=== PATIENT | female | born 1970 | race Native Hawaiian/Other Pacific Islander ===

== ENCOUNTER 2016-08-17 12:39 | Outpatient (CLI) | payer OTHER ==
[~2016-08-17 12:39] MED LIST: ALBUTEROL0.083 % IN; ANORO ELLIPTA 61 AER IN; BUDE1AER5 INH; CHLORTHALID25 MG PO; CLARITIN10 M1 PO; LEVO0.1519 PO; NEXIUM40 M1 PO; TRIA37.541 PO
== END 2016-08-17 20:47 | disposition home or self-care (01) ==
LOC: RAD 12:39
DX: J90 Pleural effusion, not elsewhere classified (principal)

== ENCOUNTER 2016-10-10 09:54 | Outpatient (CLI) | payer OTHER | END 2016-10-10 11:30 | disposition home or self-care (01) | LOC: CT 09:54 | DX: J32.4 Chronic pansinusitis (principal); J31.0 Chronic rhinitis ==

== ENCOUNTER 2016-12-01 00:58 | Emergency (ER) | payer OTHER ==
[~2016-12-01] VITALS: Ht 165.1 cm; Wt 140.6 kg
[2016-12-01 02:07] LABS: PLATELET COUNT 205 K/uL (152-353)
[2016-12-01 04:16] VITALS: BP 135/66; TEMP 98.3
== END 2016-12-01 04:25 | disposition home or self-care (01) ==
LOC: ED 00:58
PROVIDERS: Emergency Medicine
DX: N39.0 Urinary tract infection, site not specified (principal); R11.2 Nausea with vomiting, unspecified; E03.8 Other specified hypothyroidism
CPT/HCPCS: 36415; 80053; 81000; 81025; 84443; 85027; 87077; 87086; 87088; 87186; 96361; 96374; 99284; J0744; J1885; J2175; J2405; J2550

== ENCOUNTER 2016-12-06 13:13 | Outpatient (CLI) | payer OTHER | END 2016-12-06 14:15 | disposition home or self-care (01) | LOC: RAD 13:13 | DX: M54.5 Low back pain (principal) ==

== ENCOUNTER 2016-12-14 15:12 | Outpatient (CLI) | payer OTHER | END 2016-12-14 19:36 | disposition home or self-care (01) | LOC: RESP 15:12 | DX: G56.03 Carpal tunnel syndrome, bilateral upper limbs (principal); G56.22 Lesion of ulnar nerve, left upper limb; G56.23 Lesion of ulnar nerve, bilateral upper limbs | CPT/HCPCS: 95911 ==

== ENCOUNTER 2017-01-26 13:54 | Emergency (ER) | payer OTHER ==
[~2017-01-26] VITALS: Ht 165.1 cm; Wt 145.2 kg
[2017-01-26 14:22] VITALS: TEMP 99
[2017-01-26 15:22] VITALS: BP 132/84
== END 2017-01-26 15:22 | disposition home or self-care (01) ==
LOC: ED 13:54
PROC: 0HQDXZZ Repair Right Lower Arm Skin, External Approach (ICD-10-PCS; principal; 2017-01-26)
DX: S51.811A Laceration without foreign body of right forearm, initial encounter (principal); W22.8XXA Striking against or struck by other objects, initial encounter; Y92.89 Other specified places as the place of occurrence of the external cause
CPT/HCPCS: 99283

== ENCOUNTER 2017-02-12 08:03 | Outpatient (CLI) | payer OTHER | END 2017-02-12 09:30 | disposition home or self-care (01) | LOC: MRI 08:03 | DX: M54.17 Radiculopathy, lumbosacral region (principal) ==

== ENCOUNTER 2017-04-18 23:36 | Emergency (ER) | payer OTHER ==
[~2017-04-18] VITALS: Ht 165.1 cm; Wt 149.7 kg
[2017-04-19 00:35] LABS: PLATELET COUNT 177 K/uL (152-353)
[2017-04-19 00:48] LABS: POTASSIUM 4.1 mmol/L (3.6-5.2)
[2017-04-19 02:00] VITALS: BP 109/49; TEMP 99.1
== END 2017-04-19 01:59 | disposition home or self-care (01) ==
LOC: ED 23:36
DX: J02.0 Streptococcal pharyngitis (principal); J11.1 Influenza due to unidentified influenza virus with other respiratory manifestations
CPT/HCPCS: 36415; 80053; 85027; 87804; 87880; 99283

== ENCOUNTER 2017-05-11 12:16 | Observation (INO) | payer OTHER ==
[~2017-05-11] VITALS: Ht 166.4 cm; Wt 152.9 kg
[2017-05-11 16:12] LABS: PLATELET COUNT 234 K/uL (152-353)
[2017-05-11 16:32] LABS: POTASSIUM 3.8 mmol/L (3.6-5.2); SODIUM 136 mmol/L (136-145)
[2017-05-11 16:55] LABS: PARTIAL THROMBOPLASTIN TIME 28.4 SECONDS (24.5-33.6)
[2017-05-11 17:11] VITALS: BP 129/84; TEMP 98.9; Ht 166.4 cm; Wt 152.9 kg
[2017-05-11] MEDS ORDERED: VENLAFAXINE75 M2 PO (18:01)
[2017-05-11] MEDS ORDERED: VITAMIN D5000 UNIT OR (18:01)
[2017-05-11] MEDS ORDERED: ONDA4TAB3 PO (18:02)
[2017-05-11] MEDS ORDERED: RANITIDINE 150150 MG PO ×2 (18:03→18:04)
[2017-05-11] MEDS ORDERED: CETI10TA PO (18:05)
[2017-05-11] MEDS ORDERED: XYZAL5 MG OR (18:06)
[2017-05-11] MEDS ORDERED: ZEBUTAL 50-325-1 CAP PO (18:06)
[2017-05-11] MEDS ORDERED: TRAM50TA PO (18:07)
[2017-05-11] MEDS ORDERED: CYCL10TA35 PO (18:08)
[2017-05-11 20:00] VITALS: BP 132/52; TEMP 99.1
[2017-05-11 23:38] VITALS: BP 110/55; TEMP 98.4
[2017-05-12 04:00] VITALS: BP 107/54; TEMP 97.6
--- NOTE | 2017-05-12 07:49 | NUR ---
ATTEMPTTED TO CALL DR. STALEY TO NOTIFY HR WAS IN 40'S. DR. STALEY ASWERED WILL CALL BACK. NITRO PATCH
[2017-05-12 08:00] VITALS: BP 123/63; TEMP 98
--- NOTE | 2017-05-12 10:17 | NUR ---
DR. STALEY CALLED. NOTIFIED HEARTRATE WAS LOW BUT RETURNED TO 60 AND 70 AFTER NITRO PATCH REMOVED.
[2017-05-12 12:00] VITALS: BP 121/50; TEMP 99.3
== END 2017-05-12 13:50 | disposition home or self-care (01) ==
LOC: MED/SURG 12:16
PROVIDERS: ADMIT Family Medicine
DX: R07.89 Other chest pain (principal); R00.1 Bradycardia, unspecified
CPT/HCPCS: 36415; 80053; 82550; 84484; 85027; 85610; 85730; 93005; 94640; 94664; 94760; 96365; 96366; 96372; 96375; 99220; G0378; G0379; J1650; J2405; J2930

== ENCOUNTER 2018-07-15 18:25 | Emergency (ER) | payer BC ==
[~2018-07-15] VITALS: Ht 165.1 cm; Wt 145.2 kg
[~2018-07-15 18:25] MED LIST changes: +CETI10TA PO; +CYCL10TA35 PO; +ONDA4TAB3 PO; +RANITIDINE 150150 MG PO; +TRAM50TA PO; +VENLAFAXINE75 M2 PO; +VITAMIN D5000 UNIT OR; +XYZAL5 MG OR; +ZEBUTAL 50-325-1 CAP PO
[2018-07-15 21:55] VITALS: BP 153/75; TEMP 98.1
== END 2018-07-15 22:00 | disposition home or self-care (01) ==
LOC: ED 18:25
DX: J45.909 Unspecified asthma, uncomplicated (principal); R06.02 Shortness of breath
CPT/HCPCS: 94664; 96372; 99282; J2920; J2930

== ENCOUNTER 2018-08-30 16:28 | Outpatient (CLI) | payer BC | END 2018-08-30 20:02 | disposition home or self-care (01) | LOC: RAD 16:28 | DX: R19.7 Diarrhea, unspecified (principal) | CPT/HCPCS: 83630; 87015; 87045; 87324; 87328; 87329; 87449; 87899 ==

== ENCOUNTER 2018-10-25 09:21 | Outpatient (CLI) | payer OTHER | END 2018-10-25 19:07 | disposition home or self-care (01) | LOC: MRI 09:21 | DX: M54.17 Radiculopathy, lumbosacral region (principal) ==

== ENCOUNTER 2018-11-08 14:08 | Outpatient (CLI) | payer OTHER | END 2018-11-08 23:41 | disposition home or self-care (01) | LOC: RAD 14:08 | DX: M25.561 Pain in right knee (principal) ==

== ENCOUNTER 2018-11-20 10:39 | Outpatient (CLI) | payer OTHER | END 2018-11-20 23:44 | disposition home or self-care (01) | LOC: RESP 10:39 | DX: R60.0 Localized edema (principal) | CPT/HCPCS: 93306 ==

== ENCOUNTER 2019-04-26 22:43 | Emergency (ER) | payer BC ==
[~2019-04-26] VITALS: Ht 165.1 cm; Wt 163.3 kg
[2019-04-27] LABS: PLATELET COUNT 219 K/uL (152-353)
[2019-04-27 00:27] LABS: POTASSIUM 3.5 mmol/L (3.6-5.2); SODIUM 141 mmol/L (136-145)
[2019-04-27 00:50] VITALS: BP 151/97; TEMP 97.7
== END 2019-04-27 00:50 | disposition home or self-care (01) ==
LOC: ED 22:43
PROVIDERS: Emergency Medicine
DX: J44.9 Chronic obstructive pulmonary disease, unspecified (principal); J18.9 Pneumonia, unspecified organism
CPT/HCPCS: 36415; 80053; 82550; 83880; 84484; 85027; 86140; 87502; 87651; 93005; 94664; 96374; 99284; J2930

== ENCOUNTER 2019-08-10 20:28 | Emergency (ER) | payer OTHER ==
[~2019-08-10] VITALS: Ht 165.1 cm; Wt 168.3 kg
[2019-08-10 22:00] VITALS: BP 128/72; TEMP 98.5
== END 2019-08-10 22:07 | disposition home or self-care (01) ==
LOC: ED 20:28
PROC: 0HQFXZZ Repair Right Hand Skin, External Approach (ICD-10-PCS; principal; 2019-08-10)
DX: S61.210A Laceration without foreign body of right index finger without damage to nail, initial encounter (principal); W25.XXXA Contact with sharp glass, initial encounter; Y92.89 Other specified places as the place of occurrence of the external cause
CPT/HCPCS: 99283

== ENCOUNTER 2019-11-20 10:45 | Observation (INO) | payer OTHER ==
[~2019-11-20] VITALS: Ht 165.1 cm; Wt 170.1 kg
[2019-11-20 15:56] LABS: PLATELET COUNT 213 K/uL (152-353)
[2019-11-20 16:00] VITALS: BP 157/69; TEMP 98.2
[2019-11-20 18:35] VITALS: BP 136/59; TEMP 98.4; Ht 165.1 cm; Wt 170.1 kg
[2019-11-20 20:00] VITALS: BP 145/85; TEMP 98.1
[2019-11-21 00:09] VITALS: BP 121/633; TEMP 98.3
[2019-11-21 04:02] VITALS: BP 131/54; TEMP 98.3
[2019-11-21 08:00] VITALS: BP 138/72; TEMP 98.8
[2019-11-21 12:00] VITALS: BP 135/59; TEMP 97.7
[2019-11-21 16:29] LABS: PLATELET COUNT 214 K/uL (152-353)
[2019-11-21 16:36] LABS: POTASSIUM 3.8 mmol/L (3.6-5.2)
[2019-11-21 20:00] VITALS: BP 114/58; TEMP 98.7
[2019-11-22] VITALS: BP 108/46; TEMP 98.1
[2019-11-22 04:00] VITALS: BP 134/71; TEMP 98.2
[2019-11-22 04:11] LABS: PLATELET COUNT 239 K/uL (152-353)
[2019-11-22 04:59] LABS: POTASSIUM 4.6 mmol/L (3.6-5.2)
[2019-11-22 08:00] VITALS: BP 152/68; TEMP 98.4
== END 2019-11-22 14:18 | disposition home or self-care (01) ==
LOC: MED/SURG 10:45
PROVIDERS: ADMIT Family Medicine
DX: U07.1 COVID-19 (principal); J45.901 Unspecified asthma with (acute) exacerbation; R06.00 Dyspnea, unspecified; E66.01 Morbid (severe) obesity due to excess calories; R09.02 Hypoxemia; E78.49 Other hyperlipidemia; I10 Essential (primary) hypertension; R51 Headache; E86.0 Dehydration
CPT/HCPCS: 36415; 80053; 82728; 83605; 83735; 84100; 85027; 85379; 87040; 93005; 94667; 94668; 94760; 99220; G0378; G0379; J0696; J1100; J1650

== ENCOUNTER 2020-07-26 12:53 | Outpatient (CLI) | payer BC ==
[2020-07-26 13:10] LABS: PLATELET COUNT 253 K/uL (152-353)
[2020-07-26 13:25] LABS: POTASSIUM 4.5 mmol/L (3.6-5.2)
== END 2020-07-26 21:38 | disposition home or self-care (01) ==
LOC: LABW 12:53
PROVIDERS: ATTEND Nurse Practitioner Family
DX: J44.1 Chronic obstructive pulmonary disease with (acute) exacerbation (principal); R60.0 Localized edema
CPT/HCPCS: 36415; 80053; 83880; 85027; 85652; 86038; 86140; 86430

== ENCOUNTER 2020-08-13 11:53 | Outpatient (CLI) | payer BC | END 2020-08-13 21:20 | disposition home or self-care (01) | LOC: RAD 11:53 | PROVIDERS: ATTEND Physician Assistant | DX: M25.561 Pain in right knee (principal); M25.562 Pain in left knee ==

== ENCOUNTER 2020-09-22 06:33 | Emergency (ER) | payer BC ==
[~2020-09-22] VITALS: Ht 165.1 cm; Wt 170.1 kg
[2020-09-22 06:38] VITALS: BP 149/65; TEMP 97
[2020-09-22 08:00] LABS: PLATELET COUNT 173 K/uL (152-353)
[2020-09-22 08:05] LABS: POTASSIUM 4.1 mmol/L (3.6-5.2)
== END 2020-09-22 08:58 | disposition still patient (30) ==
LOC: ED 06:33
PROVIDERS: Family Medicine
DX: J44.1 Chronic obstructive pulmonary disease with (acute) exacerbation (principal); F17.210 Nicotine dependence, cigarettes, uncomplicated
CPT/HCPCS: 80053; 85027; 94664; 96372; 99283; J1020; J1100

== ENCOUNTER 2020-11-21 11:47 | Emergency (ER) | payer BC ==
[~2020-11-21] VITALS: Ht 165.1 cm; Wt 171.5 kg
[2020-11-21 12:45] LABS: PLATELET COUNT 197 K/uL (152-353)
[2020-11-21 12:53] LABS: POTASSIUM 4.2 mmol/L (3.6-5.2)
[2020-11-21 13:00] VITALS: BP 119/51; TEMP 97.8
== END 2020-11-21 13:00 | disposition home or self-care (01) ==
LOC: ED 11:47
PROVIDERS: Hospitalist
DX: J06.9 Acute upper respiratory infection, unspecified (principal); J32.8 Other chronic sinusitis; F17.210 Nicotine dependence, cigarettes, uncomplicated; Z20.822 Contact with and (suspected) exposure to COVID-19
CPT/HCPCS: 80048; 85027; 87635; 87651; 96374; 96375; 99284; J1100; J2405; U0003

== ENCOUNTER 2020-11-23 15:54 | Outpatient (CLI) | payer BC ==
[~2020-11-23] VITALS: Ht 165.1 cm; Wt 170.1 kg
== END 2020-11-23 20:41 | disposition home or self-care (01) ==
LOC: INF 15:54
PROVIDERS: ATTEND Family Medicine
DX: E86.0 Dehydration (principal)
CPT/HCPCS: 96360; 96361

== ENCOUNTER 2021-01-06 15:09 | Outpatient (CLI) | payer BC | END 2021-01-06 19:14 | disposition home or self-care (01) | LOC: RAD 15:09 | PROVIDERS: ATTEND Nurse Practitioner Family | DX: R05 Cough (principal) ==

== ENCOUNTER 2021-01-06 16:48 | Emergency (ER) | payer BC ==
[~2021-01-06] VITALS: Ht 165.1 cm; Wt 171.9 kg
[2021-01-06 17:53] LABS: PLATELET COUNT 279 K/uL (152-353)
[2021-01-06 17:58] LABS: POTASSIUM 3.9 mmol/L (3.6-5.2); SODIUM 139 mmol/L (136-145)
[2021-01-06 20:50] VITALS: BP 141/74; TEMP 98
== END 2021-01-06 20:50 | disposition home or self-care (01) ==
LOC: ED 16:48
PROVIDERS: Hospitalist
DX: N39.0 Urinary tract infection, site not specified (principal); J44.1 Chronic obstructive pulmonary disease with (acute) exacerbation; K21.9 Gastro-esophageal reflux disease without esophagitis
CPT/HCPCS: 36415; 80053; 81000; 82550; 83880; 84484; 85027; 85610; 85730; 87077; 87086; 87088; 87186; 93005; 96365; 96366; 96375; 99284; J1956; J2405; J2930

== ENCOUNTER 2021-02-15 14:03 | Outpatient (CLI) | payer OTHER | END 2021-02-15 21:57 | disposition home or self-care (01) | LOC: RAD 14:03 | PROVIDERS: ATTEND Nurse Practitioner Primary Care | DX: Z20.822 Contact with and (suspected) exposure to COVID-19 (principal) ==

== ENCOUNTER 2021-02-16 12:23 | Outpatient (CLI) | payer OTHER | END 2021-02-16 21:53 | disposition home or self-care (01) | LOC: LABW 12:23 | PROVIDERS: ATTEND Nurse Practitioner Family | DX: Z20.822 Contact with and (suspected) exposure to COVID-19 (principal) | CPT/HCPCS: 36415; 82728; 83880; 85379; 86140 ==

== ENCOUNTER 2021-02-21 15:03 | Observation (INO) | payer OTHER ==
[~2021-02-21] VITALS: Ht 165.1 cm; Wt 167.1 kg
[2021-02-21 16:04] LABS: PLATELET COUNT 270 K/uL (152-353)
[2021-02-21 16:19] VITALS: BP 103/49; TEMP 98.3; Ht 165.1 cm; Wt 167.1 kg
[2021-02-21 16:29] LABS: POTASSIUM 3.5 mmol/L (3.6-5.2)
[2021-02-21 16:44] LABS: PARTIAL THROMBOPLASTIN TIME 25.5 SECONDS (24.5-33.6)
[2021-02-21 20:00] VITALS: BP 124/66; TEMP 97.6
[2021-02-22] VITALS: BP 115/59; TEMP 98.3
[2021-02-22 04:00] VITALS: BP 111/46; TEMP 98.5
[2021-02-22] MEDS ORDERED: POTASSIUM CHLO20 ME1 PO (04:34)
[2021-02-22] MEDS ORDERED: FLUOXETINE40 MG PO (04:35)
[2021-02-22] MEDS ORDERED: TRAMADOL HYDROC50 MG PO (04:36)
[2021-02-22] MEDS ORDERED: FAMOTIDINE40 MG PO (04:37)
[2021-02-22] MEDS ORDERED: EC-NAPROXEN500 MG PO (04:38)
[2021-02-22] MEDS ORDERED: FURO40TA93 PO (04:39)
[2021-02-22] MEDS ORDERED: KETOROLAC10 MG PO (04:41)
[2021-02-22] MEDS ORDERED: EUTHYROX150 MCG PO (04:43)
[2021-02-22] MEDS ORDERED: ARNUITY EL50 MCG/ACT NAS (04:44)
[2021-02-22] MEDS ORDERED: PREDNISONE10 M1 PO (04:47)
[2021-02-22 07:55] LABS: PLATELET COUNT 267 K/uL (152-353)
[2021-02-22 08:00] VITALS: BP 140/59; TEMP 97.8
[2021-02-22 08:08] LABS: POTASSIUM 5.4 mmol/L (3.6-5.2)
[2021-02-22 12:00] VITALS: BP 138/73; TEMP 98.6
[2021-02-22 16:00] VITALS: BP 151/56; TEMP 97.9
== END 2021-02-22 17:45 | disposition home or self-care (01) ==
LOC: MED/SURG 15:03
PROVIDERS: ADMIT Family Medicine; ATTEND Family Medicine
DX: J44.1 Chronic obstructive pulmonary disease with (acute) exacerbation (principal); R07.89 Other chest pain; J45.41 Moderate persistent asthma with (acute) exacerbation; R07.81 Pleurodynia
CPT/HCPCS: 80053; 82550; 83735; 84100; 84132; 84484; 85027; 85610; 85730; 87635; 93005; 94664; 94760; 99220; G0378; G0379; J1650; J2930; U0003

== ENCOUNTER 2021-04-28 17:04 | Emergency (ER) | payer OTHER ==
[~2021-04-28] VITALS: Ht 165.1 cm; Wt 166.9 kg
[~2021-04-28 17:04] MED LIST changes: +ARNUITY EL50 MCG/ACT NAS; +EC-NAPROXEN500 MG PO; +EUTHYROX150 MCG PO; +FAMOTIDINE40 MG PO; +FLUOXETINE40 MG PO; +FURO40TA93 PO; +KETOROLAC10 MG PO; +POTASSIUM CHLO20 ME1 PO; +PREDNISONE10 M1 PO; +TRAMADOL HYDROC50 MG PO
[2021-04-28 17:42] LABS: PLATELET COUNT 233 K/uL (152-353)
[2021-04-28 17:47] LABS: POTASSIUM 3.9 mmol/L (3.6-5.2)
[2021-04-28 21:20] VITALS: BP 143/88; TEMP 98.3
== END 2021-04-28 21:20 | disposition home or self-care (01) ==
LOC: ED 17:04
PROVIDERS: Emergency Medicine
DX: N23 Unspecified renal colic (principal); N13.2 Hydronephrosis with renal and ureteral calculous obstruction; R82.71 Bacteriuria; Z87.442 Personal history of urinary calculi
CPT/HCPCS: 80048; 81000; 81025; 85027; 87086; 87088; 99284; J1170; J1885; J2175; J2405

== ENCOUNTER 2021-05-10 10:02 | Outpatient (CLI) | payer OTHER | END 2021-05-10 19:12 | disposition home or self-care (01) | LOC: LABW 10:02 | PROVIDERS: ATTEND Specialist | DX: N20.0 Calculus of kidney (principal) | CPT/HCPCS: 36415; 84550 ==

== ENCOUNTER 2021-07-21 19:30 | Emergency (ER) | payer OTHER ==
[~2021-07-21] VITALS: Ht 165.1 cm; Wt 166.9 kg
[2021-07-21 21:10] VITALS: BP 129/72; TEMP 98.2
== END 2021-07-21 21:10 | disposition home or self-care (01) ==
LOC: ED 19:30
DX: J06.9 Acute upper respiratory infection, unspecified (principal); J45.909 Unspecified asthma, uncomplicated; F17.290 Nicotine dependence, other tobacco product, uncomplicated; Z20.822 Contact with and (suspected) exposure to COVID-19
CPT/HCPCS: 87502; 87635; 87651; 93005; 96372; 99283; J1885; J2405; J2930; U0003

== ENCOUNTER 2021-08-18 09:43 | Outpatient (CLI) | payer OTHER | END 2021-08-18 19:09 | disposition home or self-care (01) | LOC: US 09:43 | PROVIDERS: ATTEND Nurse Practitioner Primary Care | DX: R22.42 Localized swelling, mass and lump, left lower limb (principal) ==

== ENCOUNTER 2021-09-14 15:50 | Outpatient (CLI) | payer OTHER ==
[2021-09-14 16:01] LABS: PLATELET COUNT 219 K/uL (152-353)
== END 2021-09-14 19:23 | disposition home or self-care (01) ==
LOC: LABW 15:50
PROVIDERS: ATTEND Nurse Practitioner Primary Care
DX: J45.909 Unspecified asthma, uncomplicated (principal)
CPT/HCPCS: 36415; 85027

== ENCOUNTER 2021-10-17 10:04 | Outpatient (CLI) | payer OTHER ==
[2021-10-17 10:36] LABS: PLATELET COUNT 181 K/uL (152-353)
[2021-10-17 10:43] LABS: POTASSIUM 3.7 mmol/L (3.6-5.2)
== END 2021-10-17 18:46 | disposition home or self-care (01) ==
LOC: LABW 10:04
PROVIDERS: ATTEND Nurse Practitioner Family
DX: J01.90 Acute sinusitis, unspecified (principal); R53.83 Other fatigue; E03.8 Other specified hypothyroidism; E78.2 Mixed hyperlipidemia; E55.9 Vitamin D deficiency, unspecified; R79.82 Elevated C-reactive protein (CRP); R11.2 Nausea with vomiting, unspecified
CPT/HCPCS: 36415; 80053; 80061; 81002; 81015; 82150; 82306; 82607; 83690; 84443; 85027; 86140; 87502; 87651

== ENCOUNTER 2021-10-26 08:21 | Emergency (ER) | payer OTHER ==
[~2021-10-26] VITALS: Ht 165.1 cm; Wt 166.9 kg
[2021-10-26 08:35] VITALS: BP 160/80; TEMP 98.8
== END 2021-10-26 09:34 | disposition home or self-care (01) ==
LOC: ED 08:21
DX: B37.0 Candidal stomatitis (principal)
CPT/HCPCS: 87502; 87651; 93005; 99283

== ENCOUNTER 2021-11-13 10:23 | Emergency (ER) | payer OTHER ==
[~2021-11-13] VITALS: Ht 165.1 cm; Wt 166.9 kg
[2021-11-13 10:31] VITALS: TEMP 97.5
[2021-11-13 11:06] LABS: PLATELET COUNT 176 K/uL (152-353)
[2021-11-13 11:14] LABS: POTASSIUM 3.9 mmol/L (3.6-5.2)
[2021-11-13 11:27] LABS: PARTIAL THROMBOPLASTIN TIME 25.4 SECONDS (24.5-33.6)
[2021-11-13 12:52] VITALS: BP 130/74
== END 2021-11-13 13:01 | disposition home or self-care (01) ==
LOC: ED 10:23
PROVIDERS: Hospitalist
DX: J45.909 Unspecified asthma, uncomplicated (principal); J06.9 Acute upper respiratory infection, unspecified; S81.812A Laceration without foreign body, left lower leg, initial encounter; F17.210 Nicotine dependence, cigarettes, uncomplicated; W22.8XXA Striking against or struck by other objects, initial encounter; Y92.512 Supermarket, store or market as the place of occurrence of the external cause
CPT/HCPCS: 80053; 82550; 83880; 84484; 85027; 85610; 85730; 93005; 94664; 96365; 96375; 99284; J1956; J2930

== ENCOUNTER 2021-11-14 11:58 | Emergency (ER) | payer OTHER ==
[~2021-11-14] VITALS: Ht 165.1 cm; Wt 166.9 kg
[2021-11-14 12:15] VITALS: TEMP 97.5
[2021-11-14 13:06] LABS: PLATELET COUNT 193 K/uL (152-353)
[2021-11-14 13:13] LABS: POTASSIUM 4.9 mmol/L (3.6-5.2)
[2021-11-14 16:33] VITALS: BP 141/72
== END 2021-11-14 16:33 | disposition home or self-care (01) ==
LOC: ED 11:58
PROVIDERS: Emergency Medicine Emergency Medical Services
DX: J45.909 Unspecified asthma, uncomplicated (principal); Z20.822 Contact with and (suspected) exposure to COVID-19
CPT/HCPCS: 36600; 80053; 81025; 82805; 83880; 84484; 85027; 85379; 85610; 87502; 87635; 93005; 94664; 96365; 96375; 99284; J1956; J2930; U0003

== ENCOUNTER 2022-01-10 01:37 | Emergency (ER) | payer OTHER ==
[~2022-01-10] VITALS: Ht 165.1 cm; Wt 166.9 kg
[2022-01-10 03:30] VITALS: BP 135/74; TEMP 99.2
== END 2022-01-10 03:35 | disposition home or self-care (01) ==
LOC: ED 01:37
DX: T78.49XA Other allergy, initial encounter (principal); X58.XXXA Exposure to other specified factors, initial encounter; Y92.89 Other specified places as the place of occurrence of the external cause
CPT/HCPCS: 96360; 96372; 96374; 96375; 99284; J0171; J2930; J3410

== ENCOUNTER 2022-02-14 12:55 | Outpatient (CLI) | payer OTHER | END 2022-02-14 20:32 | disposition home or self-care (01) | LOC: US 12:55 | PROVIDERS: ATTEND Nurse Practitioner Primary Care | DX: R22.42 Localized swelling, mass and lump, left lower limb (principal) ==

== ENCOUNTER 2022-04-04 16:32 | Outpatient (CLI) | payer OTHER ==
[2022-04-04 17:05] LABS: PLATELET COUNT 224 K/uL (152-353)
[2022-04-04 17:13] LABS: POTASSIUM 4.4 mmol/L (3.6-5.2)
== END 2022-04-04 19:41 | disposition home or self-care (01) ==
LOC: LABW 16:32
PROVIDERS: ATTEND Nurse Practitioner Family
DX: R60.0 Localized edema (principal)
CPT/HCPCS: 36415; 80053; 85027

== ENCOUNTER 2022-05-06 02:47 | Emergency (ER) | payer OTHER ==
[~2022-05-06] VITALS: Ht 165.1 cm; Wt 164.2 kg
[2022-05-06 02:47] VITALS: TEMP 99.4
[2022-05-06 05:15] VITALS: BP 118/88
== END 2022-05-06 05:10 | disposition home or self-care (01) ==
LOC: ED 02:47
DX: U07.1 COVID-19 (principal)
CPT/HCPCS: 87635; 92977; 94664; 99282; J2930; U0003

== ENCOUNTER 2022-05-09 12:36 | Outpatient (CLI) | payer OTHER | END 2022-05-09 20:37 | disposition home or self-care (01) | LOC: RAD 12:36 | PROVIDERS: ATTEND Nurse Practitioner Primary Care | DX: U07.1 COVID-19 (principal) ==

== ENCOUNTER 2022-06-19 12:44 | Outpatient (CLI) | payer OTHER ==
[~2022-06-19 12:44] MED LIST changes: +LEVOFLOXACIN750 MG PO; +MEDROL DOSEPAK4 MG PO
[2022-06-19 13:18] LABS: POTASSIUM 3.9 mmol/L (3.6-5.2)
[2022-06-20] MEDS ORDERED: ESCI10TA PO (12:40)
[2022-06-20] MEDS ORDERED: LEVO-T175 MCG PO (12:41)
[2022-06-20] MEDS ORDERED: TRELEGY ELLIPTA1 AER INH (12:42)
[2022-06-20] MEDS ORDERED: CETI10TA PO (12:42)
[2022-06-20] MEDS ORDERED: CLARITIN10 M1 PO (12:43)
[2022-06-20] MEDS ORDERED: NEXIUM20 M1 PO (12:43)
[2022-06-20] MEDS ORDERED: VITAMIN D5000 UNIT PO (12:44)
[2022-06-20] MEDS ORDERED: OMEP20CA PO (12:44)
[2022-06-20] MEDS ORDERED: ASPIRIN 8181 MG PO (12:44)
[2022-06-20] MEDS ORDERED: OXYGEN (12:45)
[2022-06-20] MEDS ORDERED: MONT10TA PO (12:45)
[2022-06-20] MEDS ORDERED: METF500T PO (12:45)
[2022-06-20] MEDS ORDERED: SPIRIVA RE2.5 MCG/AC (12:46)
== END 2022-06-19 21:49 | disposition home or self-care (01) ==
LOC: LABW 12:44
PROVIDERS: ATTEND Nurse Practitioner Family
DX: E66.01 Morbid (severe) obesity due to excess calories (principal); E03.8 Other specified hypothyroidism; E78.2 Mixed hyperlipidemia; E55.9 Vitamin D deficiency, unspecified; R53.83 Other fatigue
CPT/HCPCS: 36415; 80053; 80061; 82306; 82607; 84439; 84443; 84481

== ENCOUNTER 2022-06-26 09:17 | Outpatient (CLI) | payer OTHER ==
[~2022-06-26 09:17] MED LIST changes: +ASPIRIN 8181 MG PO; +ESCI10TA PO; +LEVO-T175 MCG PO; +METF500T PO; +MONT10TA PO; +NEXIUM20 M1 PO; +OMEP20CA PO; +OXYGEN; +PRED10TA27 PO; +SPIRIVA RE2.5 MCG/AC; +TRELEGY ELLIPTA1 AER INH; +VITAMIN D5000 UNIT PO
== END 2022-06-26 18:56 | disposition home or self-care (01) ==
LOC: CT 09:17
PROVIDERS: ATTEND Nurse Practitioner Family
DX: I73.9 Peripheral vascular disease, unspecified (principal); F17.210 Nicotine dependence, cigarettes, uncomplicated

== ENCOUNTER 2022-06-27 10:05 | Outpatient (CLI) | payer OTHER | END 2022-06-27 18:56 | disposition home or self-care (01) | LOC: US 10:05 | PROVIDERS: ATTEND Nurse Practitioner Family | DX: I73.9 Peripheral vascular disease, unspecified (principal) ==

== ENCOUNTER 2022-06-29 11:09 | Outpatient (CLI) | payer OTHER | END 2022-06-29 19:19 | disposition home or self-care (01) | LOC: RAD 11:09 | PROVIDERS: ATTEND Nurse Practitioner Family | DX: I65.29 Occlusion and stenosis of unspecified carotid artery (principal); I70.209 Unspecified atherosclerosis of native arteries of extremities, unspecified extremity ==

== ENCOUNTER 2022-07-07 08:00 | Outpatient (CLI) | payer OTHER | END 2022-07-07 19:28 | disposition home or self-care (01) | LOC: US 08:00 | PROVIDERS: ATTEND Nurse Practitioner Family | DX: I70.209 Unspecified atherosclerosis of native arteries of extremities, unspecified extremity (principal) ==

== ENCOUNTER 2022-08-08 14:37 | Outpatient (CLI) | payer OTHER ==
[2022-08-08 15:24] LABS: PLATELET COUNT 202 K/uL (152-353)
== END 2022-08-08 19:16 | disposition home or self-care (01) ==
LOC: LABW 14:37
PROVIDERS: ATTEND Internal Medicine Critical Care Medicine
DX: J44.9 Chronic obstructive pulmonary disease, unspecified (principal)
CPT/HCPCS: 36415; 82784; 82785; 82787; 85027; 86003; 86331; 86602; 86606; 86671